=== PATIENT | male | born 1970 | race Caucasian/White ===

== ENCOUNTER → 2016-09-06 | Outpatient (CLI) | payer BC ==
--- NOTE | 2016-09-06 09:56 | XR ---
Right foot HISTORY: Cellulitis right foot, pain and swelling, erythema 3 views of the right foot submitted. No comparisons. Postop changes are noted status post fusion of the hindfoot. Degenerative changes are present at the intertarsal joints. Bone mineralization, alignment are maintained. No periostitis to suggest osteomye litis. IMPRESSION: Postoperative changes. Osteoarthritis.
--- NOTE | 2016-09-06 14:19 | NM ---
EXAMINATION TYPE: NM bone 3 phase DATE OF EXAM: 09/06/2016 11:52 AM COMPARISON: Right foot same day HISTORY: Osteomyelitis, cellulitis, M86.9, L03.119 Triple phase bone scintigraphy was performed following the injection of27 mCi Tc 99m MDP. Immediate images and 3.5 hours post injection images acquired. FINDINGS: There is no significant abnormal accumulation of radiotracer to suggest metastatic disease to the bon e. Uptake of radiopharmaceutical is increased along the lateral aspect of the right calcaneus on bloo d flow, blood pool images as well as delayed images. Diffuse uptake is noted along the calcaneus. Mil d increased focal uptake noted on delayed images within the distal tibia anteriorly of the left foot. IMPRESSION: Correlate for possible osteomyelitis.
== END | disposition home or self-care (01) ==
LOC: RADNMMAIN 07:16
PROVIDERS: ATTEND Internal Medicine
DX: L03.119 Cellulitis of unspecified part of limb (principal); M19.071 Primary osteoarthritis, right ankle and foot
CPT/HCPCS: 73630; 78315; A9503

== ENCOUNTER → 2016-10-18 | Outpatient (CLI) | payer BC ==
[2016-10-18 08:14] LABS: Basophils # (A) 0.1 k/uL (0-0.2); Basophils % (A) 1 %; CH 27.5; CHCM 33.4; Eosinophils # (A) 0.3 k/uL (0-0.7); Eosinophils % (A) 4 %; HCT 44.4 % (39.0-53.0); HDW 2.68; HGB 14.4 gm/dL (13.0-17.5); Luc # (Auto) 0.14; Luc % (Auto) 2; Lymphocytes # (A) 1.4 k/uL (1.0-4.8); Lymphocytes % (A) 21 %; MCH 26.7 pg (25.0-35.0); MCHC 32.4 g/dL (31.0-37.0); MCV 82.6 fL (80.0-100.0); Mean Platelet Volume 7.8; Monocytes # (A) 0.3 k/uL (0-1.0); Monocytes % (A) 5 %; Neutrophils # (A) 4.5 k/uL (1.3-7.7); Neutrophils % (A) 67 %; RBC 5.38 m/uL (4.30-5.90); RDW 13.8 % (11.5-15.5); WBC 6.8 k/uL (3.8-10.6); WBC (Perox) 7.12
[2016-10-18 08:41] LABS: Anion Gap 12 mmol/L; Blood Urea Nitrogen 14 mg/dL (9-20); Calcium 9.6 mg/dL (8.4-10.2); Carbon Dioxide 27 mmol/L (22-30); Chloride 102 mmol/L (98-107); Glucose 307 mg/dL (74-99); Non-African American GFR(MDRD) >60 (>60 ml/min/1.73 sqM); Potassium 4.1 mmol/L (3.5-5.1); Sodium 141 mmol/L (137-145)
[2016-10-18 08:52] LABS: C Reactive Protein 9.7 mg/L (<10.0)
[2016-10-18 09:38] LABS: Erythrocyte Sedimentation Rate 4 mm/hr (0-15)
--- NOTE | 2016-10-18 10:12 | MR ---
MRI right foot with and without contrast HISTORY: Cellulitis, osteomyelitis Multiplanar multisequence and postcontrast images through the right foot following 18 cc MultiHance I V correlated to plain film 06 September 2016 There is extensive metal artifact which obscures detail. Achilles tendon, plantar aponeurosis are fel t to be intact. The area of concern. By artifact. No definite fluid collection. Some local edema brown ge is suspected posteriorly in the foot. IMPRESSION: Exam is limited. Osteomyelitis is not excluded.
== END | disposition home or self-care (01) ==
LOC: RADMRIMAIN 07:39
PROVIDERS: ATTEND Internal Medicine Infectious Disease
DX: M86.8X7 Other osteomyelitis, ankle and foot (principal)
CPT/HCPCS: 80048; 85652; 85025; 86140; 73720; 36415; A9577